=== PATIENT | female | born 1985 | race Caucasian/White ===

== ENCOUNTER 2024-12-27 21:29 | Emergency (ER) | payer MEDICAID ==
[~2024-12-27] VITALS: Ht 167.6 cm; Wt 61.0 kg
[2024-12-27 21:33] VITALS: O2SAT 98
[2024-12-27] MEDS ORDERED: ACET-2708 MT (23:00)
[2024-12-27] MEDS: ACETAMINOPHEN 325MG TABLET PO ONE (23:13)
[2024-12-28 00:13] VITALS: BP 108/61; PULSE 68; RESP 18; TEMP 36.9; O2SAT 98
== END 2024-12-28 00:13 | disposition home or self-care (01) ==
LOC: ER 21:29
DX: N61.1 Abscess of the breast and nipple (principal); N63.20 Unspecified lump in the left breast, unspecified quadrant
CPT/HCPCS: 99284